=== PATIENT | male | born 2000 | race Hispanic/Latino ===

== ENCOUNTER 2021-01-19 16:06 | Emergency (ER) | payer OTHER, SELFPAY ==
--- NOTE | 2021-01-19 18:04 | EDPHYS ---
Physician Documentation [facility] Name: Rayray Castanon Age: 20 yrs Sex: Male : 2000 Arrival Date: 01/19/2021 Time: 16:09 Bed 26 Private MD: ED Physician Surinder Chan HPI: 01/19 18:00 This 20 yrs old Male presents to ER via Ambulatory with complaints of Insect kb Bite - SPIDER?. 18:01 the patient presents with a swollen area of the right thumb. Description: erythematous, kb swollen. Onset: The symptoms/episode began/occurred this morning. Possible cause(s): unknown. Associated signs and symptoms: Pertinent positives: erythema, swelling, Pertinent negatives: discharge, drainage, foreign body sensation, fever, headache, nausea, shortness of breath, vomiting. Modifying factors: the symptoms are alleviated by nothing, the symptoms are aggravated by nothing. Severity of symptoms: At their worst the symptoms were mild, in the emergency department the symptoms are unchanged. The patient has not experienced similar symptoms in the past. The patient has not recently seen a physician. Pt states he woke up with redness and swelling to right thumb and it seems to be spreading into hand now. States his friend told him there was a spider on him while he was sleeping so he thinks it may have bitten him. Historical: - Allergies: 16:33 No Known Allergies; jd3 - Home Meds: 16:33 None [Active]; jd3 - PMHx: 16:33 Asthma; GERD; Hypospadius; Pyloric Stenosis; jd3 - Immunization history:: Adult Immunizations up to date. - Social history:: Smoking status: Reported history of juuling and/or vaping. ROS: 17:59 Constitutional: Negative for fever, chills, and weight loss. kb 17:59 Skin: Positive for erythema, swelling, of the right thumb. 17:59 All other systems are negative. Exam: 18:00 Constitutional: This is a well developed, well nourished patient who is awake, alert, kb and in no acute distress. Head/Face: Normocephalic, atraumatic. ENT: Moist Mucous membranes Respiratory: Respirations even and unlabored. No increased work of breathing, no retractions or nasal flaring. MS/ Extremity: Pulses equal, no cyanosis. Neurovascular intact. Full, normal range of motion. Neuro: Awake and alert, GCS 15, oriented to person, place, time, and situation. Moves all extremities. Normal gait. Psych: Awake, alert, with orientation to person, place and time. Behavior, mood, and affect are within normal limits. 18:00 Skin: cellulitis, that is minimal, on the right thumb. Vital Signs: 16:33 BP 123 / 79; Pulse 70; Resp 17 S; Temp 98.5(TE); Pulse Ox 99% on R/A; Weight 74.84 kg jd3 (R); Height 6 ft. 2 in. (187.96 cm) (R); Pain 0/10; 16:33 Body Mass Index 21.18 (74.84 kg, 187.96 cm) jd3 MDM: 17:52 Patient medically screened. kb 17:59 Data reviewed: vital signs, nurses notes. Data interpreted: Pulse oximetry: on room air kb is 99 %. Interpretation: normal. Counseling: I had a detailed discussion with the patient and/or guardian regarding: the historical points, exam findings, and any diagnostic results supporting the discharge/admit diagnosis, the need for outpatient follow up, a family practitioner, to return to the emergency department if symptoms worsen or persist or if there are any questions or concerns that arise at home. Administered Medications: 19:20 Drug: Benadryl (diphenhydrAMINE) 25 mg Route: PO; vg1 19:20 Follow up: Response: Medication administered at discharge. vg1 19:20 Drug: KeFLEX (cephalexin) 500 mg Route: PO; vg1 19:20 Follow up: Response: Medication administered at discharge. vg1 Disposition: 01/19/21 18:04 Discharged to Home. Impression: Local infection of the skin and subcutaneous tissue, unspecified. - Condition is Stable. - Discharge Instructions: Insect Bite, [id number], Skin Abscess, [id number]. - Prescriptions for Keflex 500 mg Oral Capsule - take 1 capsule by ORAL route every 8 hours for 10 days; 30 capsule. - Medication Reconciliation Form, Thank You Letter, Antibiotic Education, Prescription Opioid Use, Work release form form. - Follow up: Emergency Department; When: As needed; Reason: Worsening of condition. Follow up: Private Physician; When: 2 - 3 days; Reason: Recheck today's complaints, Continuance of care, Re-evaluation by your physician. Addendum: 01/20/2021 09:53 Co-signature as Attending Physician, Surinder Chan MD. r n Signatures: Serenity Candelario, NYLA-C IRON WORKER FOREMAN-CkSurinder Humphrey MD MD rn Juanjo Holland, RN RN jd3 Wily, Berna, RN RN vg1 Corrections: (The following items were deleted from the chart) 01/19 19:23 18:04 01/19/2021 18:04 Discharged to Home. Impression: Local infection of the skin and vg1 subcutaneous tissue, unspecified. Condition is Stable. Forms are Medication Reconciliation Form, Thank You Letter, Antibiotic Education, Prescription Opioid Use. Follow up: Emergency Department; When: As needed; Reason: Worsening of condition. Follow up: Private Physician; When: 2 - 3 days; Reason: Recheck today's complaints, Continuance of care, Re-evaluation by your physician. kb
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
[2021-01-19] MEDS ORDERED: DIPHENHYDRAMINE 25 MG TAB/CAP ONE ×2 (19:36→19:37)
[2021-01-19] MEDS ORDERED: CEPHALEXIN 250 MG CAP ONE (19:37)
[2021-01-19 19:40] VITALS: BP 123/79; TEMP 98.5; O2SAT 99
== END 2021-01-19 19:23 | disposition home or self-care (01) ==
LOC: ER 16:06
DX: L03.011 Cellulitis of right finger (principal)
CPT/HCPCS: 99283

== ENCOUNTER 2021-01-21 12:30 | Emergency (ER) | payer SELFPAY ==
[2021-01-21] MEDS ORDERED: IBUPROFEN 200 MG TAB PO ONE (14:09)
--- NOTE | 2021-01-21 16:04 | RAD REPORT ---
EXAM DESCRIPTION: RAD - Lumbar Spine 3 Views - 01/21/2021 2:21 pm CLINICAL HISTORY: PAIN COMPARISON: L Spine With Bending Views dated 04/28/2018 FINDINGS: A three-view lumbar spine examination was performed. Lumbar bodies are normal in height and alignment. No fracture or acute bony process seen. No disc spa ce narrowing. No facet joint abnormality seen. No pars defects identified. IMPRESSION: Negative lumbar spine examination for acute or suspicious finding. No identifiable changes from April 2018. Concerns for disc herniation, occult bone process or central canal abnormality can be further address ed with follow-up outpatient MRI study.
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
[2021-01-21 16:34] VITALS: TEMP 98.4
[2021-01-21 16:38] VITALS: BP 152/72; O2SAT 98
== END 2021-01-21 16:26 | disposition home or self-care (01) ==
LOC: ER 12:30
DX: M54.5 Low back pain (principal)
CPT/HCPCS: 72100; 99283

== ENCOUNTER 2021-05-12 13:16 | Emergency (ER) | payer OTHER, SELFPAY ==
[2021-05-12] MEDS ORDERED: IBUPROFEN 400 MG TAB ONE (14:25)
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
[2021-05-12 15:49] VITALS: TEMP 98.2; O2SAT 100
[2021-05-12 15:50] VITALS: BP 122/75
== END 2021-05-12 15:45 | disposition home or self-care (01) ==
LOC: ER 13:16
DX: S39.012A Strain of muscle, fascia and tendon of lower back, initial encounter (principal); S29.012A Strain of muscle and tendon of back wall of thorax, initial encounter; V47.5XXA Car driver injured in collision with fixed or stationary object in traffic accident, initial encounter
CPT/HCPCS: 70450; 72100; 72125; 99283

== ENCOUNTER 2022-05-08 13:50 | Emergency (ER) | payer OTHER, SELFPAY ==
[2022-05-08] MEDS ORDERED: DICYCLOMINE HCL 20 MG/2 ML AMP IM ONE (15:10)
[2022-05-08] MEDS ORDERED: NA CHLORIDE 0.9% 1,000 ML ONE (15:10)
[2022-05-08] MEDS ORDERED: FAMOTIDINE 20 MG/2 ML VIAL IV ONE (15:10)
[2022-05-08] MEDS ORDERED: ONDANSETRON 4 MG/2 ML VIAL ONE (15:10)
[2022-05-08 15:12] LABS: Hematocrit 45.5 % (39.6-49.0); Lymphocytes % 11.2 % (15.3-44.8); MCV 87.1 fL (80-100); MPV 7.4 fL (7.6-11.3); RBC Red Blood Cell Count 5.22 M/uL (4.33-5.43)
[2022-05-08 15:30] LABS: Albumin 4.2 g/dL (3.4-5.0); Bilirubin Total 0.5 mg/dL (0.2-1.0); Potassium 4.4 mmol/L (3.5-5.1); Protein, Total 7.7 g/dL (6.4-8.2)
--- NOTE | 2022-05-08 16:12 | RAD REPORT ---
EXAM DESCRIPTION: CT - Abdomen Pelvis W Contrast - 05/08/2022 3:55 pm CLINICAL HISTORY: Abdominal pain COMPARISON: none. TECHNIQUE: Computed axial tomography of the abdomen pelvis was obtained. 100 cc Isovue-300 was admin istered intravenously. Oral contrast was not requested which limits evaluation of bowel and appendix All CT scans are performed using dose optimization technique as appropriate and may include automated exposure control or mA/KV adjustment according to patient size. FINDINGS: The liver, spleen, pancreas, adrenal and kidneys appear unremarkable. There is no evidence of diverticulitis. Normal appendix IMPRESSION: No acute abnormality is displayed.
--- NOTE | 2022-05-08 16:46 | ER ---
Nurse's Notes [facility] Name: Rayray Castanon Age: 21 yrs Sex: Male : 2000 Arrival Date: 05/08/2022 Time: 13:52 Bed 5 Private MD: Diagnosis: Nausea;Abdominal pain, unspecified Presentation: 05/08 14:07 Chief complaint: Dizziness, headache, generalized weakness, nausea, abdominal pain, and hb diarrhea upon waking today. Reports drinking 6 quarts of suhail Gonzalez and 2 x 24 packs of Giles and taking 6 Xanax at a libertarian last night. Coronavirus screen: At this time, the client does not indicate any symptoms associated with coronavirus-19. Ebola Screen: No symptoms or risks identified at this time. Initial Sepsis Screen: Does the patient meet any 2 criteria? No. Patient's initial sepsis screen is negative. Does the patient have a suspected source of infection? No. Patient's initial sepsis screen is negative. Risk Assessment: Do you want to hurt yourself or someone else? Patient reports no desire to harm self or others. Onset of symptoms was May 07, 2022. 14:07 Method Of Arrival: Ambulatory hb 14:07 Acuity: HAYLEY 3 hb Historical: - Allergies: 14:12 Clindamycin; hb - PMHx: 14:10 Asthma; GERD; Hypospadius; Pyloric Stenosis; hb - PSHx: 14:10 Pt is unsure; hb - Immunization history:: Adult Immunizations up to date. - Social history:: Smoking status: Reported history of juuling and/or vaping. Screenin:30 Abuse screen: Denies threats or abuse. Nutritional screening: No deficits noted. aa5 Tuberculosis screening: No symptoms or risk factors identified. Fall Risk None identified. Assessment: 14:30 General: Appears uncomfortable, Behavior is calm, cooperative, Reports fatigue for 0-12 aa5 hours. Pain: Complains of pain in umbilical area Pain currently is 9 out of 10 on a pain scale. Quality of pain is described as crampy, sharp, Pain began this morning Is continuous. Neuro: Level of Consciousness is awake, alert, obeys commands, Oriented to person, place, time, situation. Cardiovascular: Heart tones S1 S2 present Rhythm is regular. Respiratory: Airway is patent Respiratory effort is even, unlabored, Respiratory pattern is regular, symmetrical, Breath sounds are clear bilaterally. GI: Abdomen is flat, non-distended, Bowel sounds present X 4 quads. Abd is soft and non tender X 4 quads. Reports diarrhea, nausea. : No signs and/or symptoms were reported regarding the genitourinary system. EENT: No signs and/or symptoms were reported regarding the EENT system. Derm: Skin is pink, warm \T\ dry. Musculoskeletal: Range of motion: intact in all extremities. 16:25 Reassessment: Patient is alert, oriented x 3, equal unlabored respirations, skin aa5 warm/dry/pink. Patient states feeling better. Patient states symptoms have improved. General: Appears comfortable. 16:25 Reassessment: Pt given water for PO challenge, pt also reminded about need for urine aa5 specimen. Pt ambulatory to restroom now to provide urine specimen. . 17:08 Reassessment: Patient is alert, oriented x 3, equal unlabored respirations, skin aa5 warm/dry/pink. Vital Signs: 14:07 BP 132 / 80; Pulse 70; Resp 16; Temp 99.1(TE); Pulse Ox 100% on R/A; Weight 81.65 kg; hb Height 6 ft. 4 in. (193.04 cm); Pain 8/10; 16:20 BP 145 / 82; Pulse 66; Resp 16 S; Pulse Ox 100% on R/A; aa5 14:07 Body Mass Index 21.91 (81.65 kg, 193.04 cm) hb ED Course: 13:52 Patient arrived in ED. as 13:54 Andrey Jaime PA is PHCP. cp 13:54 Mike Cole MD is Attending Physician. cp 14:10 Triage completed. hb 14:30 Patient has correct armband on for positive identification. Bed in low position. Call aa5 light in reach. Side rails up X 1. Adult w/ patient. Pulse ox on. NIBP on. 14:50 Rashmi Head, KIRBY is Primary Nurse. aa5 15:00 Initial lab(s) drawn, by me, sent to lab. Inserted saline lock: 20 gauge in right aa5 antecubital area, using aseptic technique. Blood collected. 15:56 CT Abd/Pelvis - IV Contrast Only In Process Unspecified. EDMS 17:08 No provider procedures requiring assistance completed. IV discontinued, intact, aa5 bleeding controlled, No redness/swelling at site. Pressure dressing applied. Administered Medications: 15:31 Drug: NS 0.9% 1000 ml Route: IV; Rate: 1 bolus; Site: right antecubital; mb9 16:20 Follow up: IV Status: Completed infusion; IV Intake: 1000ml aa5 15:31 Drug: Bentyl (dicyclomine) 20 mg Route: IM; Site: right gluteus; mb9 16:20 Follow up: Response: No adverse reaction; Pain is decreased aa5 15:31 Drug: Pepcid (famotidine) 20 mg Route: IVP; Site: right antecubital; mb9 15:40 Follow up: Response: No adverse reaction aa5 15:32 Drug: Zofran (Ondansetron) 4 mg Route: IVP; Site: right antecubital; mb9 15:40 Follow up: Response: No adverse reaction aa5 Medication: 17:08 VIS not applicable for this client. aa5 Intake: 16:20 IV: 1000ml; Total: 1000ml. aa5 Outcome: 16:45 Discharge ordered by . tammy 17:08 Discharged to home ambulatory. aa5 17:08 Condition: improved 17:08 Discharge instructions given to patient, Instructed on discharge instructions, follow up and referral plans. medication usage, Demonstrated understanding of instructions, follow-up care, medications, Prescriptions given X 2. 17:10 Patient left the ED. jl7 Signatures: Dispatcher [employer] EDUT Anna Siegel Audri, RN RN aa5 Andrey Jaime PA PA cp Nicole Jimenez RN RN Nicki Cox RN RN jl7 Ramya Mo RN RN mb9 Corrections: (The following items were deleted from the chart) 14:11 14:07 Chief complaint: Dizziness, headache, generalized weakness, nausea, abdominal hb pain, and diarrhea upon waking today. Reports drinking alcohol and taking 6 xanax at a libertarian last night. hb 14:12 14:10 Allergies: No Known Drug Allergies; hb hb 16:27 16:20 Pulse 66bpm; Resp 16bpm; Spontaneous; Pulse Ox 100% RA; aa5 aa5
--- NOTE | 2022-05-08 16:46 | EDPHYS ---
Physician Documentation [facility] Name: Rayray Castanon Age: 21 yrs Sex: Male : 2000 Arrival Date: 05/08/2022 Time: 13:52 Bed 5 Private MD: ED Physician Mike Cole HPI: 05/08 14:45 This 21 yrs old Male presents to ER via Ambulatory with complaints of Nausea, cp Abdominal Pain. 14:45 The patient presents to the emergency department with nausea, that is moderate, cp abdominal pain, of the umbilical area. Onset: The symptoms/episode began/occurred this morning. Possible causes: admits to consuming a lot of alcohol and taking "6 bars" of Xanax last night. Associated signs and symptoms: Pertinent positives: abdominal pain, anorexia, diarrhea, nausea, Pertinent negatives: constipation, dysuria, fever, GI bleeding, active vomiting. Severity of symptoms: in the emergency department the symptoms are unchanged despite home interventions. Historical: - Allergies: 14:12 Clindamycin; hb - PMHx: 14:10 Asthma; GERD; Hypospadius; Pyloric Stenosis; hb - PSHx: 14:10 Pt is unsure; hb - Immunization history:: Adult Immunizations up to date. - Social history:: Smoking status: Reported history of juuling and/or vaping. ROS: 14:50 Constitutional: Negative for body aches, chills, fever. cp 14:50 Eyes: Negative for injury, pain, redness, and discharge. cp 14:50 ENT: Negative for drainage from ear(s), ear pain, sore throat, difficulty swallowing, difficulty handling secretions. 14:50 Respiratory: Negative for cough, shortness of breath, wheezing. 14:50 Abdomen/GI: Positive for abdominal pain, nausea, diarrhea, anorexia, Negative for constipation, hematemesis, black/tarry stool, rectal bleeding, active vomiting. 14:50 : Negative for urinary symptoms. 14:50 Neuro: Positive for dizziness, weakness, Negative for altered mental status, headache. 14:50 All other systems are negative. Exam: 14:55 Constitutional: The patient appears in no acute distress, alert, awake, cp non-diaphoretic, non-toxic, well developed, well nourished. 14:55 Head/Face: Normocephalic, atraumatic. cp 14:55 Eyes: Periorbital structures: appear normal, Conjunctiva: normal, no exudate, no injection, Sclera: no appreciated abnormality, Lids and lashes: appear normal, bilaterally. 14:55 ENT: External ear(s): are unremarkable, Nose: is normal, Mouth: Lips: moist, Oral mucosa: pink and intact, moist, Posterior pharynx: Airway: no evidence of obstruction, patent, Tonsils: are normal in appearance, swelling, is not appreciated, erythema, is not appreciated, exudate, is not appreciated. 14:55 Neck: ROM/movement: is normal, is supple, without pain, no range of motions limitations, no nuchal rigidity. 14:55 Chest/axilla: Inspection: normal, Palpation: is normal, no crepitus, no tenderness. 14:55 Cardiovascular: Rate: normal, Rhythm: regular. 14:55 Respiratory: the patient does not display signs of respiratory distress, Respirations: normal, no use of accessory muscles, no retractions, labored breathing, is not present, Breath sounds: are clear throughout, no decreased breath sounds, no stridor, no wheezing. 14:55 Abdomen/GI: Inspection: abdomen appears normal, Bowel sounds: active, all quadrants, Palpation: soft, in all quadrants, moderate abdominal tenderness, in the umbilical area, right upper quadrant and right lower quadrant, rebound tenderness, is not appreciated, voluntary guarding, is elicited in the umbilical area, right upper quadrant and right lower quadrant. 14:55 Back: pain, is absent, ROM is normal. 14:55 Neuro: Orientation: to person, place \\T\\ time. Mentation: is normal, Cerebellar function: is grossly normal, Motor: moves all fours, strength is normal, Sensation: is normal. Vital Signs: 14:07 BP 132 / 80; Pulse 70; Resp 16; Temp 99.1(TE); Pulse Ox 100% on R/A; Weight 81.65 kg; hb Height 6 ft. 4 in. (193.04 cm); Pain 8/10; 16:20 BP 145 / 82; Pulse 66; Resp 16 S; Pulse Ox 100% on R/A; aa5 14:07 Body Mass Index 21.91 (81.65 kg, 193.04 cm) hb MDM: 14:16 Patient medically screened. cp 15:00 Differential diagnosis: Nonspecific abd pain, gastritis, cholecystitis, appendicitis, cp viral gastroenteritis, gastroenteritis, dehydration, electrolyte abnormality. 16:45 Data reviewed: vital signs, nurses notes, lab test result(s), radiologic studies, CT cp scan. 16:45 Counseling: I had a detailed discussion with the patient and/or guardian regarding: the cp historical points, exam findings, and any diagnostic results supporting the discharge/admit diagnosis, lab results, radiology results, to return to the emergency department if symptoms worsen or persist or if there are any questions or concerns that arise at home. Response to treatment: the patient's symptoms have markedly improved after treatment, and as a result, I will discharge patient. Special discussion: Based on the patient's Hx, exam, and Dx evaluation, there is no indication for emergent surgery or inpatient Tx. It is understood by the patient/guardian that if the Sx's persist or worsen they need to return immediately for re-evaluation. 05/08 14:36 Order name: CBC with Diff; Complete Time: 16:14 cp 05/08 16:14 Interpretation: Normal except: MPV 7.4; REENA% 81.3; LYM% 11.2. cp 05/08 14:36 Order name: CMP; Complete Time: 16:14 cp 05/08 16:14 Interpretation: Normal except: AST 12. cp 05/08 14:36 Order name: Lipase; Complete Time: 16:14 cp 05/08 14:36 Order name: Urine Microscopic Only cp 05/08 14:36 Order name: UDS cp 05/08 16:56 Order name: Urine Dipstick-Ancillary EDTN 05/08 14:36 Order name: CT Abd/Pelvis - IV Contrast Only; Complete Time: 16:14 cp 05/08 14:36 Order name: IV Saline Lock; Complete Time: 15:03 cp 05/08 14:36 Order name: Labs collected and sent; Complete Time: 15:03 cp 05/08 14:36 Order name: Urine Dipstick-Ancillary (obtain specimen); Complete Time: 16:59 cp 05/08 16:15 Order name: PO challenge; Complete Time: 16:25 cp Administered Medications: 15:31 Drug: NS 0.9% 1000 ml Route: IV; Rate: 1 bolus; Site: right antecubital; mb9 16:20 Follow up: IV Status: Completed infusion; IV Intake: 1000ml aa5 15:31 Drug: Bentyl (dicyclomine) 20 mg Route: IM; Site: right gluteus; mb9 16:20 Follow up: Response: No adverse reaction; Pain is decreased aa5 15:31 Drug: Pepcid (famotidine) 20 mg Route: IVP; Site: right antecubital; mb9 15:40 Follow up: Response: No adverse reaction aa5 15:32 Drug: Zofran (Ondansetron) 4 mg Route: IVP; Site: right antecubital; mb9 15:40 Follow up: Response: No adverse reaction aa5 Disposition Summary: 05/08/22 16:45 Discharge Ordered Location: Home cp Problem: new cp Symptoms: have improved cp Condition: Stable cp Diagnosis - Nausea cp - Abdominal pain, unspecified cp Followup: cp - With: Private Physician - When: 1 - 2 days - Reason: Worsening of condition Discharge Instructions: - Discharge Summary Sheet cp - Abdominal Pain, Adult cp - Nausea, Adult cp Forms: - Medication Reconciliation Form cp - Thank You Letter cp - Antibiotic Education cp - Prescription Opioid Use cp Prescriptions: - Zofran 4 mg Oral Tablet - take 1 tablet by ORAL route every 12 hours As needed; 20 tablet; Refills: 0, cp Product Selection Permitted - Pepcid 20 mg Oral Tablet - take 1 tablet by ORAL route every 12 hours for 10 days; 20 tablet; Refills: 0, cp Product Selection Permitted Signatures: Dispatcher [employer] Andrey Robles PA PA cp Nicole Jimenez RN RN Ramya Mo RN RN mb9 Rashmi Head RN aa5 Corrections: (The following items were deleted from the chart) 14:12 14:10 Allergies: No Known Drug Allergies; hb hb
[2022-05-08 16:56] LABS: Urine Blood Trace-intact (Negative); Urine Glucose Negative (Negative); Urine Protein Negative (Negative); Urine Specific Gravity 1.015 (1.005-1.030)
[2022-05-08 17:17] LABS: Barbiturates NEGATIVE (NEGATIVE); Benzodiazepines NEGATIVE (NEGATIVE); Cocaine NEGATIVE (NEGATIVE); METHAMPHETAM NEGATIVE (NEGATIVE); Methadone NEGATIVE (NEGATIVE); Opiates NEGATIVE (NEGATIVE); Phencyclidine NEGATIVE (NEGATIVE); THC Cannibis POSITIVE (NEGATIVE)
[2022-05-08 17:18] LABS: Urine RBC <5 /HPF (None Seen)
[2022-05-08 17:50] VITALS: TEMP 99.1; O2SAT 100
[2022-05-08 17:51] VITALS: BP 145/82
== END 2022-05-08 17:10 | disposition home or self-care (01) ==
LOC: ER 13:50
DX: R10.9 Unspecified abdominal pain (principal); R11.0 Nausea; Z88.2 Allergy status to sulfonamides; F17.290 Nicotine dependence, other tobacco product, uncomplicated
CPT/HCPCS: 96361; 85025; 36415; 83690; 80053; 80307; 74177; 96375; 96372; 96374; 99284; Q9967; J0500; J7030; J2405; 81003; 81015

== ENCOUNTER 2022-12-20 13:36 | Emergency (ER) | payer OTHER ==
[2022-12-20] MEDS ORDERED: KETOROLAC 30 MG/ML INJ ONE (13:57)
[2022-12-20] MEDS ORDERED: METOCLOPRAMIDE 10 MG/2mL INJ ONE (13:57)
[2022-12-20] MEDS ORDERED: NA CHLORIDE 0.9% 1,000 ML ONE (13:57)
--- NOTE | 2022-12-20 14:14 | RAD REPORT ---
EXAM DESCRIPTION: CT - Head Brain Wo Cont - 12/20/2022 2:00 pm CLINICAL HISTORY: HEADACHE COMPARISON: No comparisons TECHNIQUE: All CT scans are performed using dose optimization technique as appropriate and may inclu de automated exposure control or mA/KV adjustment according to patient size. FINDINGS: No intracranial hemorrhage, hydrocephalus or extra-axial fluid collection.No areas of brai n edema or evidence of midline shift. The paranasal sinuses and mastoids are clear. The calvarium is intact. IMPRESSION: No acute intracranial abnormality.
[2022-12-20 16:07] LABS: Bilirubin Total 0.7 mg/dL (0.2-1.0); Potassium 3.9 mEq/L (3.5-5.1); Protein, Total 7.6 g/dL (6.4-8.2)
[2022-12-20 16:09] LABS: Absolute Lymphocytes (CBC) 1.1 K/uL (0.7-4.9); Hematocrit 42.1 % (39.6-49.0); Lymphocytes % 9.5 % (15.3-44.8); MCV 87.2 fL (80-100); MPV 7.7 fL (7.6-11.3); RBC Red Blood Cell Count 4.83 M/uL (4.33-5.43)
--- NOTE | 2022-12-20 16:44 | ER ---
Nurse's Notes [facility] Name: Rayray Castanon Age: 22 yrs Sex: Male : 2000 Arrival Date: 12/20/2022 Time: 13:36 Bed 17 Private MD: Diagnosis: Other malaise and fatigue Presentation: 12/20 13:41 Coronavirus screen: Vaccine status: Patient reports being unvaccinated. Ebola Screen: mb9 No symptoms or risks identified at this time. Initial Sepsis Screen: Does the patient meet any 2 criteria? No. Patient's initial sepsis screen is negative. Does the patient have a suspected source of infection? No. Patient's initial sepsis screen is negative. Risk Assessment: Do you want to hurt yourself or someone else? Patient reports no desire to harm self or others. Onset of symptoms was December 20, 2022. 13:46 Chief complaint: EMS states: toned out to pt home for weakness. Pt reports drug abuse X ld1 2 days. 13:46 Method Of Arrival: EMS: [facility] ld1 13:46 Acuity: HAYLEY 3 ld1 Triage Assessment: 13:46 General: Appears in no apparent distress. comfortable, Behavior is calm, cooperative, ld1 appropriate for age. Pain: Denies pain. EENT: No signs and/or symptoms were reported regarding the EENT system. Neuro: Level of Consciousness is awake, alert, obeys commands, Oriented to person, place, time, situation. Cardiovascular: Capillary refill < 3 seconds Patient's skin is warm and dry. Rhythm is sinus rhythm. Respiratory: Airway is patent Respiratory effort is even, unlabored. GI: Abdomen is flat, non-distended. : No signs and/or symptoms were reported regarding the genitourinary system. Derm: No signs and/or symptoms reported regarding the dermatologic system. Musculoskeletal: No signs and/or symptoms reported regarding the musculoskeletal system. Historical: - Allergies: 13:40 Clindamycin; mb9 - Home Meds: 13:40 None [Active]; mb9 - PMHx: 13:40 Asthma; GERD; Hypospadius; Pyloric Stenosis; mb9 - PSHx: 13:40 None; mb9 - Immunization history:: Adult Immunizations up to date. - Social history:: Smoking status: Patient reports the use of cigarette tobacco products, smokes one-half pack cigarettes per day, Reported history of juuling and/or vaping. Screenin:41 [facility] ED Fall Risk Assessment (Adult) History of falling in the last 3 months, mb9 including since admission No falls in past 3 months (0 pts) Confusion or Disorientation No (0 pts) Intoxicated or Sedated Yes (3 pts) Impaired Gait Yes (1 pt) Mobility Assist Device Used No (0 pt) Altered Elimination No (0 pt) Score/Fall Risk Level 3 or more points = High Risk Oriented to surroundings, Maintained a safe environment, Educated pt \\T\\ family on fall prevention, incl call for assistance when getting out of bed. Abuse screen: Denies threats or abuse. Nutritional screening: No deficits noted. Tuberculosis screening: No symptoms or risk factors identified. Assessment: 13:45 Reassessment: See triage assessment. ld1 Overdose: 16:52 [place] Suicide Severity Screening: "In the past month, have you wished you were ld1 or wished you could go to sleep and not wake up?" Patient responds "no." "In the past month, have you actually had any thoughts of killing yourself?" Patient responds "no." "In your lifetime, have you ever done anything, started to do anything, or prepared to do anything to end your life?" Patient responds "no.". 16:52 [place] Suicide Severity Screening: "In the past month, have you actually had any ld1 thoughts of killing yourself?" Patient responds "yes." Based off client's responses, additional C-SSRS screening questions required. Vital Signs: 13:41 BP 140 / 97; Pulse 84; Resp 18; Temp 98.6(O); Pulse Ox 98% on R/A; Weight 77.11 kg; mb9 Height 6 ft. 4 in. ; 14:37 BP 138 / 76; Pulse 84; Resp 18; Temp 98.8(O); Pulse Ox 100% on R/A; Pain 0/10; ld1 16:16 BP 144 / 72; Pulse 66; Resp 18; Pulse Ox 100% on R/A; ld1 13:41 Body Mass Index 20.69 (77.11 kg, 193.04 cm) mb9 14:37 Pain Scale: Adult ld1 ED Course: 13:38 Patient arrived in ED. ld1 13:38 James Ny MD is Attending Physician. bs3 13:41 Arm band placed on. mb9 13:42 Placed in gown. Bed in low position. Call light in reach. Side rails up X 1. Client mb9 placed on continuous cardiac and pulse oximetry monitoring. NIBP monitoring applied. panel monitor on. 13:45 Afshan Willis, RN is Primary Nurse. ld1 13:45 Maintain EMS IV. Dressing intact. Good blood return noted. Site clean \\T\\ dry. Gauge \\T\\ ld 1 site: 20G RAC. 13:46 Triage completed. ld1 14:01 CT Head Brain wo Cont In Process Unspecified. EDMS 16:52 No provider procedures requiring assistance completed. IV discontinued, intact, ld1 bleeding controlled, No redness/swelling at site. Administered Medications: 13:53 Drug: NS 0.9% IV 1000 ml Route: IV; Rate: 1000 ml; Site: right antecubital; ld1 13:53 Drug: metoCLOPramide IVP 10 mg Route: IVP; Site: right antecubital; ld1 13:53 Drug: Ketorolac IVP 15 mg Route: IVP; Site: right antecubital; ld1 Medication: 13:41 VIS not applicable for this client. mb9 Outcome: 16:44 Discharge ordered by . bs3 16:53 Discharged to home ambulatory, with family. ld1 16:53 Condition: stable 16:53 Discharge instructions given to patient, family, Instructed on discharge instructions, follow up and referral plans. Demonstrated understanding of instructions, follow-up care. 16:53 Patient left the ED. ld1 Signatures: Dispatcher [employer] EDMS Afshan Willis, RN RN ld1 James Ny MD MD bs3 Ramya Mo RN RN mb9 Corrections: (The following items were deleted from the chart) 13:40 13:40 PSHx: Pt is unsure; mb9 mb9
--- NOTE | 2022-12-20 16:45 | EDPHYS ---
Physician Documentation [facility] Name: Rayray Castanon Age: 22 yrs Sex: Male : 2000 Arrival Date: 12/20/2022 Time: 13:36 Bed 17 Private MD: ED Physician James Ny HPI: 12/20 13:51 This 22 yrs old Male presents to ER via EMS with complaints of Drug Abuse, bs3 General Weakness. 13:51 22-year-old male history of asthma GERD pyloric stenosis, history of polysubstance bs3 abuse most notably using marijuana benzodiazepines and ecstasy presents with feeling weak dizzy he has a slight headache he notes last using ecstasy yesterday and now he feels tingling all over and generalized weakness. He notes being strapped down to the ems gurney improved him symptoms. He denies syncope but notes a headache. . Historical: - Allergies: 13:40 Clindamycin; mb9 - Home Meds: 13:40 None [Active]; mb9 - PMHx: 13:40 Asthma; GERD; Hypospadius; Pyloric Stenosis; mb9 - PSHx: 13:40 None; mb9 - Immunization history:: Adult Immunizations up to date. - Social history:: Smoking status: Patient reports the use of cigarette tobacco products, smokes one-half pack cigarettes per day, Reported history of juuling and/or vaping. ROS: 13:54 Constitutional: Negative for fever, chills bs3 13:54 All other systems are negative. Exam: 13:54 Constitutional: This is a well developed, well nourished patient who is awake, alert, bs3 and in no acute distress. Head/Face: Normocephalic, atraumatic. Eyes: Pupils equal round and reactive to light, extra-ocular motions intact. Lids and lashes normal. ENT: mmm, no posterior phyarngeal erythema Neck: Trachea midline, no thyromegaly, no neck stiffness Chest/axilla: Normal chest wall appearance and motion. Nontender with no deformity. No lesions are appreciated. Cardiovascular: Regular rate and rhythm with a normal S1 and S2. symmetric pulses in upper extremities Respiratory: Lungs have equal breath sounds bilaterally, clear to auscultation, no respiratory distress Abdomen/GI: Soft, non-tender, no rebound or guarding Skin: Warm, dry with normal turgor. Normal color with no rashes, no lesions, and no evidence of cellulitis. MS/ Extremity: Pulses equal, no cyanosis. Neurovascular intact. Full, normal range of motion. Neuro: Awake and alert, GCS 15, oriented to person, place, time, and situation. Cranial nerves II-XII grossly intact. Motor strength 5/5 in all extremities. Sensory grossly intact. Psych: Awake, alert, with orientation to person, place and time. Behavior, mood, and affect are within normal limits. 14:47 Normal sinus rhythm at [address] elevations or depressions QTc 431 as interpreted by bs3 myself Vital Signs: 13:41 BP 140 / 97; Pulse 84; Resp 18; Temp 98.6(O); Pulse Ox 98% on R/A; Weight 77.11 kg; mb9 Height 6 ft. 4 in. ; 14:37 BP 138 / 76; Pulse 84; Resp 18; Temp 98.8(O); Pulse Ox 100% on R/A; Pain 0/10; ld1 16:16 BP 144 / 72; Pulse 66; Resp 18; Pulse Ox 100% on R/A; ld1 13:41 Body Mass Index 20.69 (77.11 kg, 193.04 cm) mb9 14:37 Pain Scale: Adult ld1 MDM: 13:38 Patient medically screened. bs3 13:54 Data reviewed: vital signs, nurses notes. ED course: Possible substance induced bs3 possible dehydration possible electrolyte abnormality will rule out intracranial pathology given his headache and his dizziness although I have a lower suspicion for this given his normal neurologic exam will reassess. 16:43 ED course: Labs negative for acute pathology patient feeling better heart rate improved bs3 advised outpatient follow-up for elevated blood pressure. 12/20 13:47 Order name: CBC with Diff; Complete Time: 16:41 bs3 12/20 13:47 Order name: Comprehensive Metabolic Panel; Complete Time: 16:41 bs3 12/20 13:47 Order name: CT Head Brain wo Cont; Complete Time: 14:34 bs3 12/20 13:47 Order name: EKG - Nurse/Tech; Complete Time: 14:33 bs3 Administered Medications: 13:53 Drug: NS 0.9% IV 1000 ml Route: IV; Rate: 1000 ml; Site: right antecubital; ld1 13:53 Drug: metoCLOPramide IVP 10 mg Route: IVP; Site: right antecubital; ld1 13:53 Drug: Ketorolac IVP 15 mg Route: IVP; Site: right antecubital; ld1 Disposition Summary: 12/20/22 16:44 Discharge Ordered Location: Home bs3 Problem: new bs3 Symptoms: have improved bs3 Condition: Stable bs3 Diagnosis - Other malaise and fatigue bs3 Followup: bs3 - With: Private Physician - When: 2 - 3 days - Reason: Recheck today's complaints Discharge Instructions: - Discharge Summary Sheet bs3 - Hypertension, Adult, [id number] bs3 - Dehydration, Adult, [id number] bs3 Forms: - Medication Reconciliation Form bs3 - Thank You Letter bs3 Signatures: Dispatcher [employer] EDAfshan Segura RN RN ld1 James Ny MD MD bs3 Ramya Mo RN RN mb9 Corrections: (The following items were deleted from the chart) 13:40 13:40 PSHx: Pt is unsure; mb9 mb9 13:54 13:51 22-year-old male history of asthma GERD pyloric stenosis, history of bs3 polysubstance abuse most notably using marijuana benzodiazepines and ecstasy presents with. bs3
[2022-12-20 17:08] VITALS: TEMP 98.8; O2SAT 100
[2022-12-20 17:11] VITALS: BP 144/72
--- NOTE | 2022-12-22 14:40 | EKG ---
Test Date: 2022-12-20 Test Time: 14:34:41 Civil Drafter: JARET MEASUREMENT RESULTS: Intervals: Rate: 75 [place]: 130 QRSD: 94 QT: 386 QTc: 431 [place]: P: 73 [place]: 130 QRS: 84 T: 77 INTERPRETIVE STATEMENTS: Normal sinus rhythm Normal ECG Compared to ECG 07/11/2016 19:42:29 No significant changes Electronically Signed On 12-22-22 14:38:08 CDT by Rc Dobson
== END 2022-12-20 16:53 | disposition home or self-care (01) ==
LOC: ER 13:36
DX: R53.81 Other malaise (principal); R53.83 Other fatigue; R53.1 Weakness; R51.9 Headache, unspecified; F17.210 Nicotine dependence, cigarettes, uncomplicated; Z88.3 Allergy status to other anti-infective agents
CPT/HCPCS: 93005; 85025; 36415; 80053; 70450; 96375; 96374; 99284; J2765; J7030

== ENCOUNTER 2023-06-18 04:20 | Emergency (ER) | payer SELFPAY ==
[2023-06-18] MEDS ORDERED: NA CHLORIDE 0.9% 1,000 ML ONE (05:03)
--- NOTE | 2023-06-18 05:49 | ER ---
Nurse's Notes [facility] Name: Rayray Castanon Age: 22 yrs Sex: Male : 2000 Arrival Date: 06/18/2023 Time: 04:20 Bed 20 Private MD: Diagnosis: Palpitations Presentation: 06/18 04:28 Chief complaint: Patient states: smoke cannabis, sudden onset of palpitations. unknown rv if cannabis is mixed with something else. 04:28 Method Of Arrival: Ambulatory rv 04:30 Coronavirus screen: At this time, the client does not indicate any symptoms associated rv with coronavirus-19. Ebola Screen: No symptoms or risks identified at this time. Initial Sepsis Screen: Does the patient meet any 2 criteria? No. Patient's initial sepsis screen is negative. Does the patient have a suspected source of infection? No. Patient's initial sepsis screen is negative. Risk Assessment: Do you want to hurt yourself or someone else? Patient reports no desire to harm self or others. Onset of symptoms was June 18, 2023. 04:30 Acuity: HAYLEY 2 rv Triage Assessment: 04:31 General: Appears uncomfortable, Behavior is cooperative, anxious. Pain: Denies pain. rv Neuro: Level of Consciousness is awake, alert, obeys commands, Oriented to person, place, time, situation. Cardiovascular: Capillary refill < 3 seconds Patient's skin is warm and dry. Respiratory: Airway is patent Respiratory effort is even, unlabored. GI: No signs and/or symptoms were reported involving the gastrointestinal system. : No signs and/or symptoms were reported regarding the genitourinary system. Derm: Skin is intact. Historical: - Allergies: 04:31 Clindamycin; rv - PMHx: 04:31 Asthma; GERD; Hypospadius; Pyloric Stenosis; rv - PSHx: 04:31 None; rv - Immunization history:: Adult Immunizations up to date. - Social history:: Smoking status: Reported history of juuling and/or vaping. - Family history:: not pertinent. - Hospitalizations: : No recent hospitalization is reported. Screenin:32 [facility] ED Fall Risk Assessment (Adult) History of falling in the last 3 months, rv including since admission No falls in past 3 months (0 pts) Score/Fall Risk Level 0 - 2 = Low Risk Oriented to surroundings, Maintained a safe environment, Educated pt \T\ family on fall prevention, incl call for assistance when getting out of bed, Assessed \T\ reinforced patient's understanding of fall precautions. Abuse screen: Denies threats or abuse. Denies injuries from another. Nutritional screening: No deficits noted. Tuberculosis screening: No symptoms or risk factors identified. Assessment: 04:30 General: Appears in no apparent distress. comfortable, well groomed, well developed, pf1 Behavior is calm, cooperative, appropriate for age, quiet. 04:30 Pain: Denies pain. Neuro: No deficits noted. Level of Consciousness is awake, alert, pf1 obeys commands, Oriented to person, place, time, situation. Cardiovascular: Reports palpitations, after smoking some cannabis Capillary refill < 3 seconds Patient's skin is warm and dry. Respiratory: No deficits noted. Airway is patent Respiratory effort is even, unlabored, Respiratory pattern is regular, symmetrical, Breath sounds are clear bilaterally. GI: No deficits noted. No signs and/or symptoms were reported involving the gastrointestinal system. : No deficits noted. No signs and/or symptoms were reported regarding the genitourinary system. EENT: No deficits noted. No signs and/or symptoms were reported regarding the EENT system. Derm: No deficits noted. No signs and/or symptoms reported regarding the dermatologic system. 05:33 Reassessment: Patient appears in no apparent distress at this time. Patient and/or pf1 family updated on plan of care and expected duration. Pain level reassessed. Patient is alert, oriented x 3, equal unlabored respirations, skin warm/dry/pink. Patient states symptoms have improved. Vital Signs: 04:30 Pulse 116; Resp 20; Temp 98; Pulse Ox 100% ; Weight 72.57 kg; Height 6 ft. 0 in. ; rv 05:33 BP 129 / 67; Pulse 95; Resp 17 S; Pulse Ox 98% on R/A; ha1 04:30 Body Mass Index 21.70 (72.57 kg, 182.88 cm) rv ED Course: 04:27 Patient arrived in ED. gm2 04:28 Surinder Chan MD is Attending Physician. rn 04:31 Triage completed. rv 04:31 Arm band placed on right wrist. rv 04:33 Patient has correct armband on for positive identification. Placed in gown. Bed in low ha1 position. Call light in reach. Side rails up X 1. Adult w/ patient. 04:33 No provider procedures requiring assistance completed. rv 04:45 Inserted saline lock: 20 gauge in right antecubital area, using aseptic technique. kmf Blood collected. 05:59 Provided Education on: follow up education. pf1 05:59 IV discontinued, intact, bleeding controlled, No redness/swelling at site. Pressure pf1 dressing applied. Administered Medications: 04:50 Drug: NS 0.9% IV 1000 ml IV at 1000 ml once Route: IV; Rate: 1000 ml; Site: right pf1 antecubital; 05:30 Follow up: Response: No adverse reaction; Marked relief of symptoms; IV Status: pf1 Completed infusion; IV Intake: 1000ml Medication: 04:32 VIS not applicable for this client. rv Intake: 05:30 IV: 1000ml; Total: 1000ml. pf1 Outcome: 05:49 Discharge ordered by . rn 05:59 Discharged to home ambulatory, with friend, pf1 05:59 Condition: improved 05:59 Discharge instructions given to patient, Instructed on discharge instructions, follow up and referral plans. Demonstrated understanding of instructions, follow-up care, 06:00 Patient left the ED. pf1 Signatures: Surinder Chan MD MD rn Vicente, Ronaldo RN Bailey Lin RN RN ha1 Gabrielle Price RN RN 1 Kezia Brumfield 2 Pam Avalos [facility]
--- NOTE | 2023-06-18 05:49 | EDPHYS ---
Physician Documentation [facility] Name: Rayray Castanon Age: 22 yrs Sex: Male : 2000 Arrival Date: 06/18/2023 Time: 04:20 Bed 20 Private MD: ED Physician Surinder Chan HPI: 06/18 05:03 This 22 yrs old Male presents to ER via Ambulatory with complaints of rn Palpitations, Other. 05:03 The patient presents with a history of heart racing. Onset: The symptoms/episode rn began/occurred just prior to arrival. Modifying factors: The symptoms are aggravated by nothing. The symptoms are alleviated by nothing. Severity of symptoms: At their worst the symptoms were mild in the emergency department the symptoms are unchanged. The patient has not experienced similar symptoms in the past. The patient has not recently seen a physician. Patient reports smoking marijuana but does not feel right, believes may have smoked synthetic or his marijuana was laced. Reports heart racing. No chest pain. No recent illness.. Historical: - Allergies: 04:31 Clindamycin; rv - PMHx: 04:31 Asthma; GERD; Hypospadius; Pyloric Stenosis; rv - PSHx: 04:31 None; rv - Immunization history:: Adult Immunizations up to date. - Social history:: Smoking status: Reported history of juuling and/or vaping. - Family history:: not pertinent. - Hospitalizations: : No recent hospitalization is reported. ROS: 05:03 Constitutional: Negative for fever, chills, and weight loss, Eyes: Negative for injury, rn pain, redness, and discharge, Neck: Negative for injury, pain, and swelling, Cardiovascular: Positive for palpitations and heart racing. No chest pain Respiratory: Negative for shortness of breath, cough, wheezing, and pleuritic chest pain, Abdomen/GI: Negative for abdominal pain, nausea, vomiting, diarrhea, and constipation, MS/Extremity: Negative for injury and deformity, Skin: Negative for injury, rash, and discoloration, Neuro: Negative for headache, weakness, numbness, tingling, and seizure, Exam: 05:03 Constitutional: Thin male, no acute distress. Eyes: Injected sclera Cardiovascular: rn Tachycardic, regular. Respiratory: Speaking full sentences. No increased work of breathing. Skin: Warm, dry with normal turgor. Normal color with no rashes, no lesions, and no evidence of cellulitis. MS/ Extremity: Pulses equal, no cyanosis. Neurovascular intact. Full, normal range of motion. Equal circumference. Neuro: Awake and alert, GCS 15, oriented to person, place, time, and situation. Cranial nerves II-XII grossly intact. Motor strength 5/5 in all extremities. Sensory grossly intact. Cerebellar exam normal. Normal gait. 05:07 ECG was reviewed by the Attending Physician. rn Vital Signs: 04:30 Pulse 116; Resp 20; Temp 98; Pulse Ox 100% ; Weight 72.57 kg; Height 6 ft. 0 in. ; rv 05:33 BP 129 / 67; Pulse 95; Resp 17 S; Pulse Ox 98% on R/A; ha1 04:30 Body Mass Index 21.70 (72.57 kg, 182.88 cm) rv MDM: 04:28 Patient medically screened. rn 05:47 Differential diagnosis: arrythmia, dehydration, stress disorder, Drug-related symptoms, rn tachycardia, dehydration. Data reviewed: vital signs, nurses notes, EKG, and as a result, I will discharge patient. Counseling: I had a detailed discussion with the patient and/or guardian regarding the historical points, exam findings, and any diagnostic results supporting the discharge/admit diagnosis, the need for outpatient follow up, to return to the emergency department if symptoms worsen or persist or if there are any questions or concerns that arise at home. Response to treatment: the patient's symptoms have markedly improved after treatment, and as a result, I will discharge patient. Special discussion: I discussed with the patient/guardian in detail that at this point there is no indication for admission to the hospital. It is understood, however, that if the symptoms persist or worsen the patient needs to return immediately for re-evaluation. ED course: Patient with marked improvement in symptoms. Speaking clear and does not seem under the influence as much as when he came in. Tachycardia and palpitations have resolved. EKG not completely normal for a sue his age but patient states used to use cocaine and stimulants previously for a long time. No evidence of ischemia. Advised to stop using drugs.. 06/18 04:28 Order name: EKG; Complete Time: 04:29 rn 06/18 04:28 Order name: EKG - Nurse/Tech; Complete Time: 04:45 rn 06/18 04:39 Order name: Cardiac monitoring; Complete Time: :45 rn 06/18 04:39 Order name: O2 Sat Monitoring; Complete Time: 45 rn 06/18 04:39 Order name: IV Start; Complete Time: : rn EC:07 Rate is 113 beats/min. Rhythm is regular. QRS [place] is Normal. QRS is positive in leads rn I, aVF. TN interval is normal. QRS interval is normal. QT interval is normal. No Q waves. T waves are Normal. No ST changes noted. Clinical impression: Sinus tachycardia. Interpreted by me. Reviewed by me. Administered Medications: 04:50 Drug: NS 0.9% IV 1000 ml IV at 1000 ml once Route: IV; Rate: 1000 ml; Site: right pf1 antecubital; 05:30 Follow up: Response: No adverse reaction; Marked relief of symptoms; IV Status: pf1 Completed infusion; IV Intake: 1000ml Disposition Summary: 06/18/23 05:49 Discharge Ordered Notes: Location: Home rn Problem: new rn Symptoms: have improved rn Condition: Stable rn Diagnosis - Palpitations rn Followup: rn - With: Private Physician - When: As needed - Reason: Recheck today's complaints, Re-evaluation by your physician Discharge Instructions: - Discharge Summary Sheet rn - Palpitations rn Forms: - Medication Reconciliation Form rn - Thank You Letter rn - Antibiotic rn imcu - Prescription Opioid Use rn - Patient Portal Instructions rn - Leadership Thank You Letter rn Signatures: Surinder Chan MD MD rn Vicente, Ronaldo, RN RN rv Finley, Pamala, RN RN pf1
[2023-06-18 06:10] VITALS: TEMP 98
[2023-06-18 06:15] VITALS: BP 129/67; O2SAT 98
--- NOTE | 2023-06-20 16:54 | EKG ---
Test Date: 2023-06-18 Test Time: 04:42:26 Network Development Coordinator: RV MEASUREMENT RESULTS: Intervals: Rate: 113 [place]: 138 QRSD: 98 QT: 326 QTc: 447 [place]: P: 76 TX: 138 QRS: 90 T: 51 INTERPRETIVE STATEMENTS: Sinus tachycardia Right atrial enlargement Rightward axis Nonspecific ST abnormality Abnormal ECG Compared to ECG 12/20/2022 14:34:41 Atrial abnormality now present Right-axis deviation now present ST (T wave) deviation now present Sinus rhythm no longer present Electronically Signed On 06-20-23 16:51:57 DIRECTOR BANKING by Rc Dobson
== END 2023-06-18 06:00 | disposition home or self-care (01) ==
LOC: ER 04:20
DX: R00.2 Palpitations (principal)
CPT/HCPCS: 93005; 96360; 99284; J7030